=== PATIENT | male | born 1990 | race Caucasian/White ===

== ENCOUNTER 2016-11-11 15:50 | Emergency (ER) | payer OTHER ==
[~2016-11-11] VITALS: Ht 185.4 cm; Wt 83.9 kg
[~2016-11-11 15:50] MED LIST: ACAM0.05 PO; EFFE150C PO; K-TA1TAB PO; LEXA1TAB PO; LEXA1TAB2 PO; MELA1LIQ PO; POTA20TA4 PO; QUET1TAB8 PO; SERO50TA PO; TRAZ50TA4 PO; VENL75CA PO
[2016-11-11] MEDS ORDERED: EFFE75CA75 PO (16:04)
[2016-11-11] MEDS ORDERED: SERO1TAB PO (16:04)
[2016-11-11] MEDS ORDERED: propranolol PO (16:04)
[2016-11-11 21:00] VITALS: BP 149/95
[2016-11-11] MEDS ORDERED: QUEtiapine FUMARATE 100 MG TAB PO ONE (21:00)
== END 2016-11-11 21:03 ==
LOC: M ED 16:26
DX: R45.851 Suicidal ideations (principal); I10 Essential (primary) hypertension; F43.10 Post-traumatic stress disorder, unspecified; F10.20 Alcohol dependence, uncomplicated